=== PATIENT | female | born 1960 | race African-American/Black ===

== ENCOUNTER 2023-01-12 11:07 | Outpatient (CLI) | payer BC ==
[~2023-01-12] VITALS: Ht 177.8 cm; Wt 50.0 kg
[~2023-01-12 11:07] MED LIST: BENADRYL25 M2 PO; DRONABINOL; FENTANYL 12MCG TD; KLOR-CON20 MEQ PO; MOBIC 7.5MG7.5 MG PO; PROAIR HFA0.09 MG/AC IH; PROTONIX 40MG T40 MG PO; ZYRTEC 10MG10 MG PO
--- NOTE | 2023-01-12 11:50 | NUR ---
Dr. Romo here and talks with patient and daughter. All questions answered. 1200 Peg tube replaced and patient tolerated well. Daughter requests to talk with dietary and they were notified. 1210 Dietary here and talks with patient and daughter. Provided supplies to clean and continue to do feedings. 1225 Patient dismissed to home driven by daughter and taken to vehicle per wheelchair and assisted into car with dismissal instructions in hand and PEG tube supplies placed in car.
== END 2023-01-12 12:25 | disposition home or self-care (01) ==
LOC: SDCO 11:07
DX: C10.3 Malignant neoplasm of posterior wall of oropharynx (principal); R13.13 Dysphagia, pharyngeal phase; Z93.1 Gastrostomy status
CPT/HCPCS: 33081; B4087

== ENCOUNTER 2023-07-26 12:28 | Emergency (ER) | payer OTHER ==
[~2023-07-26] VITALS: Ht 175.3 cm; Wt 48.2 kg
[~2023-07-26 12:28] MED LIST changes: +ALEVE 220MG220 MG PO; +BIOTENE MOIST44.3 ML PO; +ELIQUIS 5MG PO; +HYCET SOLN; +LEVAQUIN 5500 MG/TA1 PO; +MACROBID 1100 MG/CAP PO; +MAG-OX 400400 MG/TAB PO; +SENNA8.8 MG/5 M PO
[2023-07-26 12:44] VITALS: TEMP 98
[2023-07-26 13:49] VITALS: BP 113/72; PULSE 59
[2023-07-30] MEDS ORDERED: CLARITIN 1010 MG/TAB PO (04:25)
[2023-07-31] MEDS ORDERED: BANOPHEN MAXIMU1 CRE TOP (14:59)
[2023-07-31] MEDS ORDERED: DULCOLAX TAB5 MG PO (15:23)
== END 2023-07-26 13:56 | disposition home or self-care (01) ==
LOC: COL.ER 12:28
DX: K94.23 Gastrostomy malfunction (principal); Z90.49 Acquired absence of other specified parts of digestive tract

== ENCOUNTER 2023-07-28 09:12 | Day surgery (SDC) | payer OTHER ==
[~2023-07-28] VITALS: Ht 172.7 cm; Wt 50.0 kg
[2023-07-28] VITALS (13 sets, daily range): BP systolic 104–135; BP diastolic 56–86; PULSE 57–93; TEMP 97.4–97.7
[2023-07-28] MEDS ORDERED: OXYCODONE H5 MG/5 ML PO (13:06)
--- NOTE | 2023-07-28 13:55 | NUR ---
PATIENT RETURNED TO ROOM 7 VIA CART, AROUSES TO NAME. DENIES NAUSEA AND SHORTNESS OF BREATH. RATES PAIN 5/10 TO ABDOMEN. BREATHING REGULAR AND UNLABORED ON 2L VIA NASAL CANNULA. PER PATIENT REPORT, PATIENT TRACHEOSTOMY SITE HAD BEEN REMOVED PRIOR TO COMING INTO HOSPITAL TODAY. GAUZE AND TAPE PRESENT TO NECK. DRESSING CLEAN, DRY AND INTACT. SKIN WARM AND DRY. BILATERAL RADIAL PULSES 2+ REGULAR. ABDOMEN FLAT AND SOFT. G-TUBE PRESENT TO LEFT SIDE OF ABDOMEN, GAUZE AND MEDIPORE TAPE PRESENT TO SITE. DRESSING CLEAN DRY AND INTACT. NURSE HANDOFF COMPLETED IN ROOM. SEE CHART FOR VITAL SIGNS. ENCOURAGED PATIENT TO DEEP BREATH. PATIENT REPOSITIONED. CALL LIGHT IN REACH. DAUGHTER, MEGAN, PRESENT IN ROOM.
--- NOTE | 2023-07-28 14:15 | NUR ---
WARM BLANKET APPLIED TO PATIENT'S ABDOMEN. PATIENT STATED PAIN HAD IMPROVED AND WAS TOLERABLE (RATED 4/10 TO ABDOMEN). DECLINED ADDITIONAL PAIN INTERVENTIONS. 1420: PATIENT RESTING IN BED. CALL LIGHT IN REACH.
--- NOTE | 2023-07-28 15:50 | NUR ---
DISCHARGE EDUCATION COMPLETED WITH PRINTED EDUCATION AND INSTRUCTIONS SENT HOME WITH PATIENT. PATIENT INSTRUCTED TO FOLLOW UP WITH NEEDED FOR ANY QUESTIONS OR ISSUES REGARDING THE PROCEDURE TODAY. PATIENT VERBALIZED UNDERSTANDING OF TEACHING AND STATED THAT SHE HAD TUBE FEEDING SUPPLIES TO RESUME FEEDINGS. PATIENT CONFIRMED THAT SHE IS COMFORTABLE RESUMING TUBE FEEDINGS AND FEELS CAPABLE OF CARING FOR GASTROSTOMY. NO ADDITIONAL QUESTIONS.
--- NOTE | 2023-07-28 16:20 | NUR ---
1600: PATIENT AMBULATED TO RESTROOM WITH STEADY GAIT (1 ASSIST) AND VOIDED WITHOUT DIFFICULTY. PATIENT STATED HER PAIN HAD IMPROVED, RATING ABDOMINAL PAIN TO TOLERABLE 3/10. DENIES NAUSEA AND SHORTNESS OF BREATH. IV REMOVED. GAUZE AND COBAN PLACED OVER SITE. PATIENT CHANGED INTO PERSONAL CLOTHING AND DISCHARGED HOME WITH DAUGHTER, MEGAN, TRANSPORT.
[2023-07-30] MEDS ORDERED: CLARITIN 1010 MG/TAB PO (04:25)
[2023-07-31] MEDS ORDERED: BANOPHEN MAXIMU1 CRE TOP (14:59)
[2023-07-31] MEDS ORDERED: DULCOLAX TAB5 MG PO (15:23)
== END 2023-07-28 16:20 | disposition home or self-care (01) ==
LOC: SDCO 09:12
DX: K94.23 Gastrostomy malfunction (principal); C10.9 Malignant neoplasm of oropharynx, unspecified; Z87.891 Personal history of nicotine dependence; K22.2 Esophageal obstruction
CPT/HCPCS: J0330; J0690; J1170; J2405; J2704; J3010; J7120

== ENCOUNTER 2024-03-25 10:33 | Emergency (ER) | payer SELFPAY ==
[~2024-03-25] VITALS: Ht 175.3 cm; Wt 48.2 kg
[~2024-03-25 10:33] MED LIST changes: +BANOPHEN MAXIMU1 CRE TOP; +CLARITIN 1010 MG/TAB PO; +DIFLUCAN150 MG PO; +DULCOLAX TAB5 MG PO; +IMODIUM AD1 MG/5 ML PO; +MUCUS RELIEF200 MG PO; +OXYCODONE H5 MG/5 ML PO; +ZOFRAN ODT4 MG PO
[2024-03-25 10:45] VITALS: TEMP 98.4
[2024-03-25] MEDS ORDERED: NS 1,000 ML IV ONE (11:15)
[2024-03-25] MEDS ORDERED: cefTRIAXone 1 G in Water For Injection,Sterile 10 ML IV ONE (11:30)
[2024-03-25 11:42] LABS: BASO % 0.2 % (0.0-2.0); EOS # 0.2 K/mm3 (0.0-0.7); EOS % 3.6 % (0.0-4.0); GRAN # 3.1 K/mm3 (1.4-6.5); GRAN % 70.8 % (42.2-75.2); HEMATOCRIT 40.2 % (37.0-47.0); HEMOGLOBIN 12.9 g/dl (12.5-16.0); LYMPH # 0.6 K/mm3 (1.2-3.4); LYMPH % 13.4 % (20.0-51.0); MEAN CELL VOLUME 96 fl (80.0-100.0); MEAN CORPUSCULAR HEMOGLOBIN 31 pg (27-31); MEAN CORPUSCULAR HGB CONC 32 g/dl (33.0-37.0); MEAN PLATELET VOLUME 10.6 fl (7.4-10.4); MONO # 0.5 K/mm3 (0.1-0.6); MONO % 11.8 % (1.7-9.3); PLATELET COUNT 149 K/mm3 (130-400)
[2024-03-25 11:54] LABS: ALBUMIN 3.5 g/dL (3.4-4.8); BILIRUBIN,TOTAL 0.4 mg/dL (0.2-1.2); CALCIUM 9.9 mg/dL (8.4-10.2); CREATININE, serum 0.75 mg/dL (0.57-1.11); POTASSIUM 4.2 mEq/L (3.5-4.5); TOTAL PROTEIN 7.3 g/dl (6.2-8.1)
[2024-03-25 13:17] VITALS: BP 130/91; PULSE 69
== END 2024-03-25 13:41 | disposition home or self-care (01) ==
LOC: COL.ER 10:33
PROVIDERS: Personal Emergency Response Attendant
DX: J40 Bronchitis, not specified as acute or chronic (principal); E86.0 Dehydration; K94.23 Gastrostomy malfunction
CPT/HCPCS: J0696; J7030

== ENCOUNTER → 2024-09-06 | Outpatient (CLI) | payer SELFPAY | LOC: COL.RAD 13:00 | DX: K22.2 Esophageal obstruction (principal) ==

== ENCOUNTER 2024-09-09 21:27 | Emergency (ER) | payer SELFPAY ==
[~2024-09-09] VITALS: Ht 175.3 cm; Wt 49.1 kg
[2024-09-09 23:26] VITALS: BP 109/60; PULSE 85; TEMP 98.3
== END 2024-09-09 23:26 | disposition home or self-care (01) ==
LOC: COL.ER 21:27
DX: K94.23 Gastrostomy malfunction (principal)